=== PATIENT | male | born 1955 | race Caucasian/White ===

== ENCOUNTER 2019-08-05 13:12 | Outpatient (CLI) | payer OTHER ==
--- NOTE | 2019-08-05 14:23 | CT ---
CT ABDOMEN AND PELVIS WITHOUT CONTRAST: Date: 08/05/2019 PROVIDED CLINICAL HISTORY: Kidney stone with left flank pain. FINDINGS: Comparison made with study dated 04/09/2016. Bibasilar subsegmental atelectatic changes are seen. There is an 11.0 mm calculus involving the mid portion of the right kidney. No additional urinary tra ct calculi are evident. There is no hydronephrosis or hydroureter. The urinary bladder appears grossl y unremarkable. Hepatic and renal cysts are seen, appearing similar to the prior study. There is no bowel dilatation, inflammatory fat stranding, free fluid, or lymph node enlargement appar ent. The osseous structures demonstrate no concerning lytic or blastic lesions. IMPRESSION: 11.0 mm nonobstructing right renal calculus. POS: ULISSES
[2019-08-05 16:16] LABS: #Basophils 0.1 thou/uL (0.0-0.2); #Eosinphils 0.2 thou/uL (0.0-0.7); #Lymphocytes 1.9 thou/uL (1.20-3.40); #Monocytes 0.8 thou/uL (0.11-0.59); #Neutrophils 3.8 thou/uL (1.40-6.50); %Basophils 0.9 % (0.0-1.0); %Eosinophils 3.2 % (0.0-10.0); %Lymphocytes 28.4 % (21.0-51.0); %Monocytes 11.4 % (0.0-10.0); %Neutrophils 56.1 % (42.0-75.0); Hemoglobin 15.7 g/dL (14.0-18.0); Mean Platelet Volume 9.2 fL (7.4-10.4); Platelet Count 233 thou/uL (130-400); RBC Distribution Width 12.2 % (11.5-14.5); Red Blood Cell (RBC) Count 4.76 mill/uL (4.70-6.10); White Blood Cell (WBC) Count 6.7 thou/uL (4.8-10.8)
[2019-08-05 16:19] LABS: Bacteria/HPF None Seen HPF (None Seen); Bilirubin Negative (Negative); Blood, Urine Negative (Negative); Clarity Clear (Clear); Glucose, Urine (Dipstick) Normal (Negative); Leukocyte Negative Leu/uL (Negative); Nitrite Negative (Negative); Protein, Urine (Dipstick) Negative (Neg-Trace); RBC/HPF 0-3 HPF (0-3); Squamous Epithelial 0-3 HPF (0-3); Urobilinogen Normal mg/dL (Less than 2); WBC/HPF 0-3 HPF (0-3)
[2019-08-05 16:27] LABS: Anion Gap 15 mmol/L (10-20); BUN (Urea Nitrogen) 17 mg/dL (8.4-25.7); Calc. Creatinine Clearance 0 mL/min (70-130); Calcium 9.7 mg/dL (7.8-10.44); Carbon Dioxide 26 mmol/L (23-31); Chloride 101 mmol/L (98-107); Estimated GFR-MDRD 60; Glucose 86 mg/dL (80-115); Potassium 4.6 mmol/L (3.5-5.1); Sodium 137 mmol/L (136-145)
== END 2019-08-05 13:13 | disposition home or self-care (01) ==
LOC: SCSCT 13:12
PROVIDERS: ATTEND Urology
DX: N20.0 Calculus of kidney (principal)
CPT/HCPCS: 36415; 74176; 80048; 81001; 85025; 87086

== ENCOUNTER 2019-12-23 12:48 | Outpatient (CLI) | payer OTHER ==
--- NOTE | 2019-12-23 14:51 | ULT ---
US Renal Bilateral STANDARD: 12/23/2019 12:00 AM CLINICAL HISTORY: History of kidney stones. STUDY: Renal ultrasound COMPARISON: None. FINDINGS: Right kidney: Echogenicity: Normal. Masses/cysts: None. Hydronephrosis: None. Calcifications: None. Length: 10.2 cm Left kidney: Echogenicity: Normal. Masses/cysts: None. Hydronephrosis: None. Calcifications: None. Length: 10.8 cm Limited visualization of the urinary bladder is unremarkable. Both ureteral jets were seen. A 2.1 cm cyst is incidentally seen within the liver. IMPRESSION: Unremarkable renal ultrasound
== END 2019-12-23 12:49 | disposition home or self-care (01) ==
LOC: BICULT 12:48
PROVIDERS: ATTEND Urology
DX: Z87.442 Personal history of urinary calculi (principal)
CPT/HCPCS: 76770

== ENCOUNTER 2020-02-28 07:30 | Outpatient (CLI) | payer OTHER ==
[2020-02-28] MEDS ORDERED: Iopamidol-370 76% 500 ML 1 ML ONE (09:05)
--- NOTE | 2020-02-28 09:21 | CT ---
CT Abdomen Pelvis W WO con: 02/28/2020 8:18 AM CLINICAL HISTORY: Gross hematuria. TECHNIQUE: Multiple contiguous axial images were obtained and a CT of the abdomen and pelvis without and with IV contrast. Postcontrast images were obtained in the nephrographic and excretory phases. Sagittal and coronal reformats were performed. COMPARISON: 08/05/2019 FINDINGS: Kidneys and Urinary Tract: Right kidney and ureter: Nonobstructing calculi measuring up to 8 mm in size. There is a 6 mm calcifi cation in the right renal pelvis. No hydronephrosis or hydroureter. No renal mass or other lesions. No urothelial lesions: no filling defect, dilation, stricture or wall thickening. Left kidney and ureter: No calculi. No hydronephrosis or hydroureter. Hypodensities in the left kidne y measuring up to 3.1 cm in size likely represent cysts. No urothelial lesions: no filling defect, dilation, stricture or wall thickening. Urinary bladder: Normal, no calculi, mass or other lesions. Remainder of Abdomen and Pelvis: Liver: Scattered hypodensities up to 3.4 cm in size likely represent cysts. Gallbladder and biliary system: Normal. No CT evident gallstones. No biliary ductal dilatation. Spleen: Normal. Pancreas: Normal. Adrenal glands: Normal. GI tract: Normal. Abdominal aorta and its major branches: Atherosclerotic calcifications. No aneurysm. Peritoneum/retroperitoneum: Normal. No ascites. No adenopathy. Pelvic structures: Normal. No pelvic lymphadenopathy. Body wall and musculoskeletal: Degenerative changes in the spine. Visualized lower thorax: Scarring and a calcified granuloma are seen in the right lung base. No suspi cious pulmonary parenchymal mass or pleural effusion. IMPRESSION: 1. Right renal and collecting system calculi as above 2. Left renal cysts 3. Hepatic cysts
== END 2020-02-28 07:31 | disposition home or self-care (01) ==
LOC: BICCT 07:30
PROVIDERS: ATTEND Urology
DX: R31.0 Gross hematuria (principal); N28.1 Cyst of kidney, acquired; N20.2 Calculus of kidney with calculus of ureter; K76.89 Other specified diseases of liver
CPT/HCPCS: 74178; 82565; Q9967

== ENCOUNTER 2020-03-07 07:25 | Outpatient (CLI) | payer OTHER ==
[2020-03-07 15:19] LABS: Mean Corpuscular HGB CONC 33.3 G/DL (32.0-36.0); Mean Corpuscular Hemoglobin 31.6 PG (27.0-33.0); Mean Corpuscular Volume 94.8 fl (80.0-100.0); Mean Platelet Volume 10.8 fl (7.4-10.4); Platelet Count 270 10x3/uL (130-400); RBC Distribution Width 13.5 % (11.5-14.5); Red Blood Cell (RBC) Count 5.38 10x6/uL (4.40-5.80); White Blood Cell (WBC) Count 10.1 10x3/uL (4.5-11.0)
[2020-03-07 15:25] LABS: Bilirubin Neg (Negative); Blood, Urine 250 (Negative); Glucose, Urine (Dipstick) Normal (Negative); Ketone, Urine 5 mg/dL (Negative); Leukocyte 25 (Negative); Nitrite Negative (Negative); Protein, Urine (Dipstick) 30 mg/dl (Neg-Trace); Specific Gravity, Urine 1.025 (1.002-1.036); Urobilinogen Normal mg/dL (Less than 2)
[2020-03-07 15:42] LABS: RBC/HPF Greater than 50 HPF (0-3); WBC/HPF 0-3 HPF (0-3)
[2020-03-07 15:43] LABS: Bacteria/HPF Rare-Few HPF (None Seen); Squamous Epithelial 0-3 HPF (0-3)
[2020-03-07 15:44] LABS: Anion Gap 17 mmol/L (10-20); BUN (Urea Nitrogen) 34 mg/dL (8.4-25.7); Calc. Creatinine Clearance 0 mL/min (70-130); Carbon Dioxide 28 mmol/L (23-31); Chloride 101 mmol/L (98-107); Estimated GFR-MDRD 48; Glucose 105 mg/dL (80-115); Potassium 4.8 mmol/L (3.5-5.1); Sodium 141 mmol/L (136-145)
[2020-03-08 13:00] LABS: SARS-CoV-2 MS2 Positive; SARS-CoV-2 N Gene Negative; SARS-CoV-2 S Gene Negative; SARS-CoV-2 by NAA Not Detected (NotDetected); SARS-CoV-2 orf1ab Negative
--- NOTE | 2020-03-10 07:03 | EKG ---
Test Reason : PREOP Blood Pressure : / mmHG Vent. Rate : 073 BPM Atrial Rate : 073 BPM P-R Int : 176 ms QRS Dur : 090 ms QT Int : 396 ms P-R-T Axes : 064 006 048 degrees QTc Int : 436 ms Sinus rhythm with Fusion complexes Otherwise normal ECG Confirmed by JOSE F RICHTER, CONSTANTINO ([id number]) on 03/10/2020 7:02:48 AM Referred By: KATELYNN Confirmed By:CONSTANTINO KOHLER MD
== END 2020-03-07 07:26 | disposition home or self-care (01) ==
LOC: LABBT 07:25
PROVIDERS: ATTEND Urology
DX: Z01.818 Encounter for other preprocedural examination (principal); N20.0 Calculus of kidney; Z20.828 Contact with and (suspected) exposure to other viral communicable diseases
CPT/HCPCS: 80048; 81001; 85027; 87086; 87635; 93005; 93010; U0003

== ENCOUNTER 2020-03-10 09:37 | Day surgery (SDC) | payer OTHER ==
[2020-03-09 13:06] VITALS: BMI 35.2
[2020-03-10] MEDS ORDERED: Levofloxacin 500 mg/D5W 100 ml Premix Bag ONE (10:44)
[2020-03-10] MEDS ORDERED: Iothalamate Meglumine 60% 50 ML VIAL FS ONE (11:30)
[2020-03-10] MEDS ORDERED: Fentanyl 100 MCG/2 ML VIAL ONE ×2 (11:42→12:43)
[2020-03-10] MEDS ORDERED: Ondansetron PF 4 MG/2 ML Vial ONE (12:43)
--- NOTE | 2020-03-10 12:54 | OP ---
DATE OF PROCEDURE: 03/10/2020 PREOPERATIVE DIAGNOSIS: Right renal stone. POSTOPERATIVE DIAGNOSIS: Right renal stone. PROCEDURES PERFORMED: Right ureteroscopy, laser lithotripsy, basket extraction of stone, retrograde pyelogram, intraoperative interpretation of radiologic imaging, 4.8 x 26 double-J ureteral stent placement. ANESTHESIA: General. COMPLICATIONS: None. ESTIMATED BLOOD LOSS: None. SPECIMEN: Right renal stone fragments. DESCRIPTION OF PROCEDURE: After informed consent, the patient was taken to the operating room, transferred to the table under his own power. Anesthesia was established. A time-out was performed, showing the correct patient, site, and procedure. Preoperative antibiotics were administered. He was prepped and draped in the lithotomy position. I began by inserting the rigid cystoscope through the urethra noting a normal course of the urethra down to the bulbar urethra, where he has one wide ring stricture, which was easily passed by the scope. The bladder was then entered and the right ureteral orifice was cannulated with a wire, which was passed up to the level of the renal pelvis. I then passed an access sheath over this into the proximal ureter under fluoroscopic guidance and performed a retrograde pyelogram through the access sheath showing hydronephrosis with no obvious filling defects. The flexible ureteroscope was then passed through the access sheath into the renal pelvis, where two stones were quickly encountered in the pelvis. A third stone was in a lower to mid pole calyx. All three stones were fragmented into small pieces with a 200 micron laser fiber. A Nitinol basket was then used to retrieve all clinically significant stone fragments. I then re-examined the entirety of the renal collecting system, noting no further stone fragments that required removal. The collecting system was filled with contrast before removing the scope and access sheath, leaving a wire in place. A 4.8 x 26 double-J ureteral stent was positioned over the wire with a curl in the kidney and curl in the bladder. The bladder was drained. The strings from the stent were taped to the patient's penis with a Tegaderm. He was then awoken from anesthesia, transferred back to his hospital bed and taken to PACU in stable condition, where he was discharged home upon recovery. Job ID: [id number]
[2020-03-10] MEDS ORDERED: ePHEDrine 50 MG/ML VIAL ONE (13:09)
[2020-03-10] MEDS ORDERED: Dexamethasone 20 MG/5 ML VIAL ONE (13:09)
[2020-03-10] MEDS ORDERED: PROPOFOL 200 MG/20 ML VIAL ONE (13:09)
--- NOTE | 2020-03-10 13:27 | RAD ---
EXAM: Retrograde IVP HISTORY: Kidney stones COMPARISON: CT abdomen/pelvis 02/28/2020 FINDINGS/IMPRESSION: Limited intraoperative fluoroscopic views of the retrograde IVP were submitted f or interpretation. A wire is seen in the right renal collecting system as well as a lithotripsy catheter. No obvious filling defects are seen. Mild hydronephrosis is seen. Eventually, a double-J u reteral stent is placed which appears in good position.
[2020-03-10] MEDS ORDERED: Oxybutynin 5 MG TAB ONE (13:32)
[2020-03-10] MEDS ORDERED: Ketorolac Tromethamine 30 MG/ML VIAL ONE (13:32)
== END 2020-03-10 14:40 | disposition home or self-care (01) ==
LOC: SDC 09:37
PROVIDERS: ATTEND Urology
PROC: 0TC38ZZ Extirpation of Matter from Right Kidney Pelvis, Via Natural or Artificial Opening Endoscopic (ICD-10-PCS; principal; 2020-03-10)
PROC: 0T768DZ Dilation of Right Ureter with Intraluminal Device, Via Natural or Artificial Opening Endoscopic (ICD-10-PCS; principal; 2020-03-10)
DX: N13.2 Hydronephrosis with renal and ureteral calculous obstruction (principal); I10 Essential (primary) hypertension; Z79.01 Long term (current) use of anticoagulants; Z79.899 Other long term (current) drug therapy; Z88.2 Allergy status to sulfonamides
CPT/HCPCS: 74420; 82365; 88300; J1100; J1885; J1956; J2405; J2704; J3010; J3490

== ENCOUNTER 2020-04-07 09:27 | Outpatient (CLI) | payer OTHER ==
--- NOTE | 2020-04-07 10:40 | ULT ---
Exam: Bilateral renal ultrasound HISTORY: Renal ultrasound COMPARISON: 12/23/2019 FINDINGS: Right kidney: Normal cortical echotexture. No hydronephrosis. Echogenic foci in the right renal pelvi s may represent nonobstructing calculi. Right kidney measurements: 9.0 x 5.6 x 6.4. cm. Left kidney: Normal cortical echotexture. No hydronephrosis. Anechoic focus emanating from the left r enal cortex measures 3.3 x 2.0 x 3.7 cm, compatible with a cyst. Left kidney measurements 11.6 x 5.2 x 6.8 cm. Urinary bladder: Normal mucosa. IMPRESSION: 1. No hydronephrosis 2. Left renal cortical cyst 3. Not obstructing calculus in the right renal pelvis
== END 2020-04-07 09:28 | disposition home or self-care (01) ==
LOC: BICULT 09:27
PROVIDERS: ATTEND Urology
DX: N20.0 Calculus of kidney (principal); N28.1 Cyst of kidney, acquired
CPT/HCPCS: 76770

== ENCOUNTER 2020-10-11 11:40 | Outpatient (CLI) | payer OTHER | END 2020-10-11 11:41 | disposition home or self-care (01) | LOC: BICRAD 11:40 | PROVIDERS: ATTEND Urology | DX: Z87.442 Personal history of urinary calculi (principal) | CPT/HCPCS: 74018 ==

== ENCOUNTER 2021-01-29 11:47 | Outpatient (CLI) | payer MEDICARE, OTHER | END 2021-01-29 11:48 | disposition home or self-care (01) | LOC: CT 11:47 | PROVIDERS: ATTEND Urology | DX: R31.0 Gross hematuria (principal); N20.0 Calculus of kidney | CPT/HCPCS: 74176 ==

== ENCOUNTER 2021-12-03 10:57 | Emergency (ER) | payer MEDICARE, OTHER ==
[2021-12-03] MEDS ORDERED: Acetaminophen/Codeine 30-300mg Tablet ONE (13:14)
== END 2021-12-03 13:20 | disposition home or self-care (01) ==
LOC: ERS 10:57
DX: S20.219A Contusion of unspecified front wall of thorax, initial encounter (principal); I10 Essential (primary) hypertension; Z86.711 Personal history of pulmonary embolism; F17.290 Nicotine dependence, other tobacco product, uncomplicated; W18.39XA Other fall on same level, initial encounter; Z79.01 Long term (current) use of anticoagulants; Z79.899 Other long term (current) drug therapy

== ENCOUNTER 2022-05-04 21:44 | Emergency (ER) | payer MEDICARE, OTHER ==
[2022-05-04 22:17] LABS: #Eosinphils 0.1 thou/uL (0.0-0.7); #Lymphocytes 1.7 thou/uL (1.20-3.40); #Monocytes 0.7 thou/uL (0.11-0.59); #Neutrophils 5.1 thou/uL (1.40-6.50); %Basophils 0.2 % (0.0-1.0); %Eosinophils 1.6 % (0.0-10.0); %Lymphocytes 22.4 % (21.0-51.0); %Neutrophils 66.7 % (42.0-75.0); Hemoglobin 15.7 g/dL (14.0-18.0); Mean Corpuscular HGB CONC 34.7 g/dL (32.0-36.0); Mean Corpuscular Hemoglobin 33.8 pg (27.0-31.0); Mean Corpuscular Volume 97.4 fl (78.0-98.0); Mean Platelet Volume 8.2 fL (7.4-10.4); Platelet Count 218 10x3/uL (130-400); RBC Distribution Width 12.3 % (11.5-14.5); Red Blood Cell (RBC) Count 4.64 mill/uL (4.70-6.10); White Blood Cell (WBC) Count 7.6 10x3/uL (4.8-10.8)
[2022-05-04 22:38] LABS: ALT (SGPT) 44 U/L (8-55); AST (SGOT) 52 U/L (5-34); Albumin 4.3 g/dL (3.4-4.8); Alkaline Phosphatase 58 U/L (40-110); Anion Gap 18 mmol/L (10-20); BUN (Urea Nitrogen) 28 mg/dL (8.4-25.7); Bilirubin, Total 0.3 mg/dL (0.2-1.2); Calc. Creatinine Clearance 0 mL/min (70-130); Calcium 8.9 mg/dL (7.8-10.44); Carbon Dioxide 18 mmol/L (23-31); Chloride 107 mmol/L (98-107); Estimated GFR 60; Globulin 3.5 g/dL (2.4-3.5); Glucose 186 mg/dL (80-115); Potassium 4.2 mmol/L (3.5-5.1); Protein, Total 7.8 g/dL (5.8-8.1); Sodium 139 mmol/L (136-145)
[2022-05-04 23:11] LABS: Actual Bicarbonate (HCO3v) 24 mEq/L (22-28); Analyzer IN Cardio ER; Base Excess -0.3 mEq/L (-2.0 to +3.0); Chloride (VBG) 104 mmol/L (98-106); Hemoglobin (Hb) 16.5 g/dL (12.6-17.4); Sodium 139.5 mmol/L (133-146); pH (venous) 7.41 (7.32-7.43)
== END 2022-05-05 00:45 | disposition home or self-care (01) ==
LOC: ERS 21:44
DX: S01.81XA Laceration without foreign body of other part of head, initial encounter (principal); N17.9 Acute kidney failure, unspecified; I10 Essential (primary) hypertension; R55 Syncope and collapse; W10.9XXA Fall (on) (from) unspecified stairs and steps, initial encounter
CPT/HCPCS: 36415; 70450; 71045; 72125; 80053; 82550; 82805; 84484; 85025; 93005; 94760